=== PATIENT | male | born 2000 | race Hispanic/Latino ===

== ENCOUNTER → 2023-12-07 | Emergency (ER) | payer OTHER ==
[~2023-12-07] MED LIST: NICOTINE 21 MG/PAT TD ONE; hydrOXYzine HCL 25 MG TAB ONE
--- OUTSIDE RECORDS SUMMARY | 2023-12-07 19:33 | XMS REPORT | Continuity of Care Document ---
Author Name Unknown Address [address] [facility] [address] [place], [place] [id number] [place] [address] [facility] Address [address] [address] [address] [place] [address] Care Team Providers Care Line Installer Name Role Phone Nataliya Shu Attending Clinician Unavailable Treva Craig Attending Clinician Unavailable Raju_Leroy Attending Clinician Unavailable KNOW, DOES_NOT Admitting Clinician Unavailable Raju_P Admitting Clinician Unavailable Payers Payer Name Policy Type Policy Number Effective Date Expirati on Date Source Problems Condition Name Condition Details Condition Category Status Onset Date Resolution Date Last Treatment Date Treating Clinician Comments Source [id number] Bipolar affective disorder, current episode depressed, current episode severity unspecifie d Problem Common [facility] Allergies, Adverse Reactions, Alerts Allergy Name Allergy Type Status Severity Reaction(s) Onset Date Inactive Date Treating Clinician Comments Source pollen extracts DA Active [facility] 05-21 00:00: 00 [facility] cat dander DA Active [place] [facility] 05-21 00:00: 00 [facility] No Known Allergie s DA Active U 12-18 00:00: 00 [facility] Social History Social Habit Start Date Stop Date Quantity Comments Source History of Tobacco Use [facility] Sex Assigned At [facility] Smoking Status Start Date Stop Date Source Former Smoker 2023-03-26 00:00:00 2023-03-26 00:00:00 [facility] Medications Ordered Medication Name Filled Medication Name Start Date Stop Date Current Medication? Ordering Clinician Indication Dosage Frequency Signature (SIG) Comments Components Source Paliperidon e ER 6 MG Paliperidon e ER 6 MG No 1{table t_in_th e_morni ng} BID Paliperido ne ER 6 MG Divalproex Sodium 500 MG Divalproex Sodium 500 MG No 1{table t} BID Divalproex Sodium 500 MG Paliperidon e ER 6 MG Paliperidon e ER 6 MG No 1{table t_in_th e_morni ng} BID Paliperido ne ER 6 MG Divalproex Sodium 500 MG Divalproex Sodium 500 MG No 1{table t} BID Divalproex Sodium 500 MG Paliperidon e ER 6 MG Paliperidon e ER 6 MG No 1{table t_in_th e_morni ng} BID Paliperido ne ER 6 MG Divalproex Sodium 500 MG Divalproex Sodium 500 MG No 1{table t} BID Divalproex Sodium 500 MG Vital Signs Vital Name Observation Time Observation Value Comments S triciace height 2023-04-03 13:20:00 69 [in_i] [facility] weight 2023-04-03 13:20:00 250 [lb_av] [facility] bmi 2023-04-03 13:20:00 36.91 kg/m2 [facility] height 2023-02-18 09:00:00 69 [in_i] [facility] n [facility] weight 2023-02-18 09:00:00 252 [lb_av] [facility] temperature 2023-02-18 09:00:00 98.7 [degF] Com mon [facility] bmi 2023-02-18 09:00:00 37.21 kg/m2 [facility] oximetry 2023-02-18 09:00:00 97 % [facility] respiratory rate 2023-02-18 09:00:00 17 /min [facility] blood pressure systolic 2023-02-18 09:00:00 132 mm[Hg] [facility] blood pressure diastolic 2023-02-18 09:00:00 76 mm[Hg] [facility] Encounters Start Date/Time End Date/Time Encounter Type Admission Type Attending Clinicians Care Facility Care Department Encounter ID Source 2023-04-03 12:09:02 Outpatient Shu An STYADIRALC STLMLC [id number] [facility] 2023-03-31 13:40:01 Outpatient Rocky Ani STLMLC ST[facility] [id number] [facility] 2023-02-18 08:40:04 Outpatient Shu An STLMLC STL[facility]C [id number] [facility] 2023-05-27 08:57:00 2023-05-27 08:57:00 Outpatient MINNIE Craig Treva HCAPM ALVARADO [id number] 23 [facility] 2023-04-08 00:00:00 2023-04-08 00:00:00 (TEL) STLMLC STLMLC [id number] [facility] 2023-04-03 00:00:00 2023-04-03 00:00:00 OFFICE VISIT ESTAB PT LEVEL 3 [facility] STL[facility]C [id number] [facility] 2023-02-18 00:00:00 2023-02-18 00:00:00 OFFICE VISIT NEW PT LEVEL 3 [facility] STL[facility]C [id number] [facility] 2020-01-26 11:53:00 2020-01-26 11:53:00 Outpatient Raju_P MMG MMG [id number] [facility] Results Test Description Test Time Test Comments Results Result Co mments Source PROTHROMBIN [id number] 16:30:00* Test Item Value Reference Range Interpretation Comme nts PT PATIENT (test code = PTP) 11.5 SECONDS 9.3-12.9 N INTERNATIONAL NORMAL RATIO (test code = INR) 1.04 INR Unit 0.8-1.2 N TARGET INR BY INDICATION Indication INR1. Prophylaxis of venous thrombosis 2.0 - 3.0 (orthopedic surgery), Prophylaxis of venous thrombosis (other than high-risk surgery), Treatment of Deep Vein Thrombosis/Pulmonary Embolism, Prevention of systemic embolism - Tissue heart valves, Acute Myocardial Infarction (to prevent systemic embolism), Valvular heart disease, Acute Myocardial Infarction (to prevent systemic embolism), Valvular heart disease, Atrial Fibrillation, Bileaflet mechanical valve in aortic position.2. Mechanical prosthetic valves (high risk), 2.5 - 3.5 Presence of Lupus Anticoagulant or Antiphospholipid Antibodies, Prevention of systemic embolism - Acute Myocardial Infarction (to prevent recurrent infarct). THROMBOPLASTIN TIME [id number] 16:30:00* Test Item Value Reference Range Interpretation Comme nts THROMBOPLASTIN TIME PARTIAL (test code = PTT) 35.1 SECONDS 26-35 H CBC W/AUTO [id number] 12:32:00* Test Item Value Reference Range Interpretation Comme nts WHITE BLOOD CELL (test code = WBC) 6.1 K/mm3 3.5-11.0 N RED BLOOD CELL (test code = RBC) 5.34 M/mm3 4.70-6.10 N HEMOGLOBIN (test code = HGB) 14.3 G/DL 12.3-15.9 N HEMATOCRIT (test code = HCT) 44.1 % 35.8-46.7 N MEAN CELL VOLUME (test code = MCV) 82.6 Fl 86.3-98.9 L MEAN CELL HGB (test code = MCH) 26.8 pg 28.9-34.4 L MEAN CELL HGB CONCETRATION (test code = MCHC) 32.4 G/DL 32.1-34.5 N RED CELL DISTRIBUTION WIDTH (test code = RDW) 12.2 SD 11.5-14.5 N PLATELET COUNT (test code = PLT) 281 K/mm3 150-450 N MEAN PLATELET VOLUME (test c ode = MPV) 10.30 fL 7.0-9.6 H NEUTROPHIL % (test code = NT%) 56.8 % 40-76 N IMMATURE GRANULOCYTE % (test code = IG%) 0.7 % 0.0-5.0 N LYMPHOCYTE % (test code = LY%) 28.5 % 20.5-51.1 N MONOCYTE % (test code = MO%) 10.7 % 1.7-9.3 H EOSINOPHIL % (test code = EO%) 2.6 % 0.0-6.0 N BASOPHIL % (test code = BA%) 0.7 % 0.0-2.0 N NUCLEATED RBC % (test code = NRBC%) 0.0 /100WBC% 0.0-1.0 N NEUTROPHIL # (test code = NT#) 3.5 K/mm3 1.8-7.6 N IMMATURE GRANULOCYTE # (test code = IG#) 0.04 x10 3/uL 0.00-0.03 H LYMPHOCYTE # (test code = LY#) 1.7 K/mm3 0.6-3.0 N MONOCYTE # (test code = MO#) 0.7 K/mm3 0.2-1.5 N EOSINOPHIL # (test code = EO#) 0.2 K/mm3 0.0-0.4 N BASOPHIL # (test code = BA#) 0.0 K/mm3 0.0-0.2 N NUCLEATED RBC # (test code = NRBC#) 0.0 K/mm3 0.00-0.01 N MANUAL DIFF REQUIRED (test c ode = MDIFF) NO DIFF/SCN CRITERIA BASIC METABOLIC [id number] 12:08:00* Test Item Value Reference Range Interpretation Comme nts SODIUM (test code = NA) 142 mmol/L 134-147 N POTASSIUM (test code = K) 4.0 mmol/L 3.4-5.0 N CHLORIDE (test code = CL) 110 mmol/L 100-108 H CARBON DIOXIDE (test code = CO2) 29 mmol/L 21-32 N ANION GAP (test code = GAP) 3.0 GAP calc 4.0-15.0 L GLUCOSE (test code = GLU) 119 MG/DL 70-110 H BLOOD UREA NITROGEN (test code = BUN) 12 MG/DL 7-18 N GLOMERULAR FILTRATION RATE (test code = GFR) >=60 max estimate estGFR >60 The Glomerular Filtration Rate is a calculated parameterbased on serum Creatinine, patient age and sex. GFR valuesless than 60 mL/min/1.73 square meters are indicative ofChronic Kidney Disease. Values less than 15 mL/min/1.73square meters indicate Kidney failure. The calculation forGFR is based on the CKD-EPI (2020) calculation. This formulais race indifferent and is the recommended formula for GFRby the National Kidney Foundation for Adults.The GFR will not calculate if the sex is unknown or if thepatient's age is <18 years. CREATININE (test code = CREAT) 0.8 MG/DL 0.8-1.3 N CALCIUM (test code = CA) 9.0 MG/DL 8.5-10.1 N COMPREHENSIVE METABOLIC PANEL(CMP)2023-03-29 00:00:00* Test Item Value Reference Range Interpretation Comme nts ALBUMIN (test code = 1751-7) 4.6 g/dL See_Comment N [Automated message] The system which generated this result transmitted reference range: 3.6-5.1 g/dL. The reference range was not used to interpret this result as normal/abnormal. ALBUMIN/GLOBULIN RATIO (test code = 1759-0) 1.5 (calc) See_Comment N [Automated message] The system which generated this result transmitted reference range: 1.0-2.5 (calc). The reference range was not used to interpret this result as normal/abnormal. ALKALINE PHOSPHATASE (test code = 6768-6) 75 U/L See_Comment N [Automated message] The system which generated this result transmitted reference range: 36-130 U/L. The reference range was not used to interpret this result as normal/abnormal. ALT (test code = 1742-6) 15 U/L See_Comment N [Automated message] The system which generated this result transmitted reference range: 9-46 U/L. The reference range was not used to interpret this result as normal/abnormal. AST (test code = 1920-8) 12 U/L See_Comment N [Automated message] The system which generated this result transmitted reference range: 10-40 U/L. The reference range was not used to interpret this result as normal/abnormal. BILIRUBIN, TOTAL (test code = 1975-2) 0.4 mg/dL See_Comment N [Automated message] The system which generated this result transmitted reference range: 0.2-1.2 mg/dL. The reference range was not used to interpret this result as normal/abnormal. BUN/CREATININE RATIO (test code = 3097-3) NOT APPLICABLE (calc) See_Comment [Automated message] The system which generated this result transmitted reference range: 6-22 (calc). The reference range was not used to interpret this result as normal/abnormal. CALCIUM (test code = 35633-7) 9.4 mg/dL See_Comment N [Automated message] The system which generated this result transmitted reference range: 8.6-10.3 mg/dL. The reference range was not used to interpret this result as normal/abnormal. CARBON DIOXIDE (test code = 2028-9) 26 mmol/L See_Comment N [Automated message] The system which generated this result transmitted reference range: 20-32 mmol/L. The reference range was not used to interpret this result as normal/abnormal. CHLORIDE (test code = 2075-0) 103 mmol/L See_Comment N [Automated message] The system which generated this result transmitted reference range: 98-110 mmol/L. The reference range was not used to interpret this result as normal/abnormal. CREATININE (test code = 2160-0) 0.87 mg/dL See_Comment N [Automated message] The system which generated this result transmitted reference range: 0.60-1.24 mg/dL. The reference range was not used to interpret this result as normal/abnormal. GLOBULIN (test code = 50367-0) 3.0 g/dL (calc) See_Comment N [Automated message] The system which generated this result transmitted reference range: 1.9-3.7 g/dL (calc). The reference range was not used to interpret this result as normal/abnormal. GLUCOSE (test code = 2345-7) 94 mg/dL See_Comment N [Automated message] The system which generated this result transmitted reference range: 65-139 mg/dL. The reference range was not used to interpret this result as normal/abnormal. POTASSIUM (test code = 2823-3) 4.5 mmol/L See_Comment N [Automated message] The system which generated this result transmitted reference range: 3.5-5.3 mmol/L. The reference range was not used to interpret this result as normal/abnormal. PROTEIN, TOTAL (test code = 2885-2) 7.6 g/dL See_Comment N [Automated message] The system which generated this result transmitted reference range: 6.1-8.1 g/dL. The reference range was not used to interpret this result as normal/abnormal. SODIUM (test code = 2951-2) 143 mmol/L See_Comment N [Automated message] The system which generated this result transmitted reference range: 135-146 mmol/L. The reference range was not used to interpret this result as normal/abnormal. UREA NITROGEN (BUN) (test code = 3094-0) 17 mg/dL See_Comment N [Automated message] The system which generated this result transmitted reference range: 7-25 mg/dL. The reference range was not used to interpret this result as normal/abnormal. CBC (INCLUDES DIFF/PLT)2023-03-29 00:00:00* Test Item Value Reference Range Interpretation Comme nts ABSOLUTE BASOPHILS (test code = 704-7) 53 cells/uL See_Comment N [Automated m essage] The system which generated this result transmitted reference range: 0-200 cells/uL. The reference range was not used to interpret this result as normal/abnormal. ABSOLUTE EOSINOPHILS (test code = 711-2) 190 cells/uL See_Comment N [Automated m essage] The system which generated this result transmitted reference range: 15-500 cells/uL. The reference range was not used to interpret this result as normal/abnormal. ABSOLUTE LYMPHOCYTES (test code = 731-0) 2546 cells/uL See_Comment N [Automated m essage] The system which generated this result transmitted reference range: 850-3900 cells/uL. The reference range was not used to interpret this result as normal/abnormal. ABSOLUTE MONOCYTES (test code = 742-7) 600 cells/uL See_Comment N [Automated m essage] The system which generated this result transmitted reference range: 200-950 cells/uL. The reference range was not used to interpret this result as normal/abnormal. ABSOLUTE NEUTROPHILS (test code = 751-8) 4210 cells/uL See_Comment N [Automated m essage] The system which generated this result transmitted reference range: 1396-0128 cells/uL. The reference range was not used to interpret this result as normal/abnormal. BASOPHILS (test code = 706-2) 0.7 % N EOSINOPHILS (test code = 713-8) 2.5 % N HEMATOCRIT (test code = 4544-3) 46.4 % See_Comment N [Automated messa ge] The system which generated this result transmitted reference range: 38.5-50.0 %. The reference range was not used to interpret this result as normal/abnormal. HEMOGLOBIN (test code = 718-7) 15.6 g/dL See_Comment N [Automated messa ge] The system which generated this result transmitted reference range: 13.2-17.1 g/dL. The reference range was not used to interpret this result as normal/abnormal. LYMPHOCYTES (test code = 736-9) 33.5 % N MCH (test code = 785-6) 27.8 pg See_Comment N [Automated messa ge] The system which generated this result transmitted reference range: 27.0-33.0 pg. The reference range was not used to interpret this result as normal/abnormal. MCHC (test code = 786-4) 33.6 g/dL See_Comment N [Automated messa ge] The system which generated this result transmitted reference range: 32.0-36.0 g/dL. The reference range was not used to interpret this result as normal/abnormal. MCV (test code = 787-2) 82.7 fL See_Comment N [Automated messa ge] The system which generated this result transmitted reference range: 80.0-100.0 fL. The reference range was not used to interpret this result as normal/abnormal. MONOCYTES (test code = 5905-5) 7.9 % N MPV (test code = 776-5) 9.9 fL See_Comment N [Automated messa ge] The system which generated this result transmitted reference range: 7.5-12.5 fL. The reference range was not used to interpret this result as normal/abnormal. NEUTROPHILS (test code = 770-8) 55.4 % N PLATELET COUNT (test code = 777-3) 310 Thousand/uL See_Comment N [Automated message] The system which generated this result transmitted reference range: 140-400 Thousand/uL. The reference range was not used to interpret this result as normal/abnormal. RDW (test code = 788-0) 13.5 % See_Comment N [Automated messa ge] The system which generated this result transmitted reference range: 11.0-15.0 %. The reference range was not used to interpret this result as normal/abnormal. RED BLOOD CELL COUNT (test code = 789-8) 5.61 Million/uL See_Comment N [Automated message] The system which generated this result transmitted reference range: 4.20-5.80 Million/uL. The reference range was not used to interpret this result as normal/abnormal. WHITE BLOOD CELL COUNT (test code = 6690-2) 7.6 Thousand/uL See_Comment N [Automated message] The system which generated this result transmitted reference range: 3.8-10.8 Thousand/uL. The reference range was not used to interpret this result as normal/abnormal. Notes Date/Time Note Provider Source 2023-06-09 14:51:00 [id number] 1[address] [place] [address] PATIENT NAME: ANILA DENNEY ADMIT DATE: 05/27/23ACCOUNT NO: [id number] ROOM NO: AGE: 22 REPORT TYPE: OPERATIVE REPORT SEX: M ADMITTING PHYSICIAN: ATTENDING PHYSICIAN: Treva Craig MD OPERATION DATE: 05/27/2023 PREOPERATIVE DIAGNOSIS: Pilonidal cyst. POSTOPERATIVE DIAGNOSIS: Pilonidal cyst. PROCEDURE: Excision of pilonidal cyst. SURGEON: Treva Craig MD ACTIMIZE ARCHITECT:Ivania Ortiz ANESTHESIA: GETA PROCEDURE IN DETAIL: The patient was taken back to the operating room andplaced supine on the operating table and general anesthesia was established, thepatient was positioned in prone position and the lower back and bilateralbuttocks were prepped and draped in standard sterile fashion. An ellipticalincision was made overlying the area of the cyst and extended through skin andsubcutaneous tissue. Irrigation was performed. Hemostasis was achieved. Thewound was then closed with interrupted nylon sutures. The patient tolerated theprocedure well and was taken to recovery area in stable condition. ESTIMATED BLOOD LOSS: Less than 10 mL. COMPLICATIONS: None. Dictated By: Treva Craig MD Date Dictated: 06/09/2023 14:51:42Date Transcribed: 06/09/2023 20:17:26GIULIA/Roopa #: [id number] ID: [id number] and Edited by Treva Craig MD On 06/23/23 7:19:31 AM at 0720 PATIENT NAME: ANILA DENNEY [id number].[id number] lable for patient [id number]:[id number] HCAPM
[2023-12-07 20:43] LABS: Absolute Lymphocytes (CBC) 1.8 K/uL (0.7-4.9); Hematocrit 43.9 % (39.6-49.0); Lymphocytes % 22.9 % (15.3-44.8); MCV 81.6 fL (80-100); MPV 8.3 fL (7.6-11.3); Platelets 281 thou/uL (152-406); RBC Red Blood Cell Count 5.38 M/uL (4.33-5.43)
[2023-12-07 20:50] LABS: Protime INR 1.12
[2023-12-07 21:04] LABS: ALT/SGPT 24 U/L (16-61); AST/SGOT 9 U/L (15-37); Albumin 3.5 g/dL (3.4-5.0); Alkaline Phosphatase 68 U/L (45-117); BUN Blood Urea Nitrogen 14 mg/dL (7-18); Bicarbonate 26 mEq/L (21-32); Bilirubin Direct 0.1 mg/dL (0-0.2); Bilirubin Indirect, Calculated 0.3 mg/dL (0.2-0.8); Bilirubin Total 0.4 mg/dL (0.2-1.0); Glomerular Filtration Rate 59 ml/min (=/>90); Glucose Level 91 mg/dL (74-106); Protein, Total 7.5 g/dL (6.4-8.2); Sodium Level 138 mEq/L (136-145)
[2023-12-07 21:50] LABS: Specific Gravity 1.028 (1.005-1.030); Urine Bacteria None Seen /HPF (<20); Urine Bilirubin NEGATIVE (Negative); Urine Blood Negative (Negative); Urine Clarity Clear (Clear); Urine Color Light-Yellow (Yellow); Urine Glucose NEGATIVE (Negative); Urine Mucus Slight /HPF (None Seen); Urine Protein TRACE (Negative); Urine RBC <5 /HPF (None Seen); Urine Urobilinogen Normal (Normal); Urine pH 6.5 (5.0-7.0)
[2023-12-07 21:55] LABS: Barbiturates NEGATIVE (NEGATIVE); Benzodiazepines NEGATIVE (NEGATIVE); Cocaine NEGATIVE (NEGATIVE); METHAMPHETAM NEGATIVE (NEGATIVE); Methadone NEGATIVE (NEGATIVE); Opiates NEGATIVE (NEGATIVE); Phencyclidine NEGATIVE (NEGATIVE); THC Cannibis NEGATIVE (NEGATIVE)
[2023-12-07 23:13] LABS: Valproic Acid (Depakene) Level 62.1 mcg/mL (50.0-100.0)
--- NOTE | 2023-12-07 23:23 | ER ---
Nurse's Notes [facility] Name: Tess Denney Age: 23 yrs Sex: Male : 2000 Arrival Date: 12/07/2023 Time: 19:30 Bed 19 Private MD: Diagnosis: Suicidal ideations;Exacerbation of chronic depression. Acute on chronic depression, suicidal ideation with plan Presentation: 12/07 19:55 Chief complaint: Patient states: Pt states he is having suicidal ideation since making tl4 an attempt by cutting his left wrist approx 1 month ago. Pt denies any attempt at self harm today. Pt states he had a relationship end and has been struggling to deal with it. Pt denies having a plan. Pt has history of inpatient psych treatment x 5. Pt denies HI. Coronavirus screen: At this time, the client does not indicate any symptoms associated with coronavirus-19. Ebola Screen: No symptoms or risks identified at this time. Initial Sepsis Screen: Does the patient meet any 2 criteria? No. Patient's initial sepsis screen is negative. Does the patient have a suspected source of infection? No. Patient's initial sepsis screen is negative. Risk Assessment: Do you want to hurt yourself or someone else? Patient reports no desire to harm self or others. Onset of symptoms was November 08, 2023. 19:55 Method Of Arrival: Ambulatory tl4 19:55 Acuity: RUIZ 2 tl4 Triage Assessment: 20:02 General: Appears in no apparent distress. uncomfortable, obese, Behavior is vc1 cooperative, anxious. 20:02 Pain: Denies pain. EENT: No deficits noted. No signs and/or symptoms were reported vc1 regarding the EENT system. Neuro: Level of Consciousness is awake, alert, obeys commands, Oriented to person, place, time, situation, Appropriate for age. Cardiovascular: Reports None Heart tones S1 S2. Respiratory: Airway is patent Respiratory effort is even, unlabored, Respiratory pattern is regular, symmetrical, Breath sounds are clear bilaterally. GI: No deficits noted. No signs and/or symptoms were reported involving the gastrointestinal system. Abdomen is round non-distended, Bowel sounds present X 4 quads. : No deficits noted. No signs and/or symptoms were reported regarding the genitourinary system. Derm: No deficits noted. No signs and/or symptoms reported regarding the dermatologic system. Musculoskeletal: No deficits noted. No signs and/or symptoms reported regarding the musculoskeletal system. Historical: - Allergies: 20:00 No Known Allergies; tl4 - Home Meds: 20:00 paliperidone 6 mg oral Tablet, Extended Release 24 hr 2 tabs daily [Active]; divalproex tl4 500 mg oral tablet, delayed release (enteric coated) 2 tabs daily [Active]; hydroxyzine HCl 25 mg Oral tablet 1 tab [Active]; - PMHx: 20:00 Bipolar disorder; tl4 - PSHx: 20:00 wisdom teeth extraction; pilondial cyst removal; tl4 - Immunization history:: Adult Immunizations unknown. - Social history:: Smoking status: Reported history of juuling and/or vaping. - Family history:: not pertinent. Screenin:02 [facility] ED Fall Risk Assessment (Adult) History of falling in the last 3 months, vc1 including since admission No falls in past 3 months (0 pts) Confusion or Disorientation No (0 pts) Intoxicated or Sedated No (0 pts) Impaired Gait No (0 pts) Mobility Assist Device Used No (0 pt) Altered Elimination No (0 pt) Score/Fall Risk Level 0 - 2 = Low Risk Oriented to surroundings, Maintained a safe environment, Educated pt \\T\\ family on fall prevention, incl call for assistance when getting out of bed. Abuse screen: Denies threats or abuse. 20:02 Nutritional screening: No deficits noted. Tuberculosis screening: No symptoms or risk vc1 factors identified. Assessment: 21:42 Reassessment: No changes from previously documented assessment. Patient and/or family vc1 updated on plan of care and expected duration. Pain level reassessed. Patient is alert, oriented x 3, equal unlabored respirations, skin warm/dry/pink. 23:23 Reassessment: No changes from previously documented assessment. Patient and/or family vc1 updated on plan of care and expected duration. Pain level reassessed. Patient is alert, oriented x 3, equal unlabored respirations, skin warm/dry/pink. Pt resting comfortably. General: Behavior is calm, cooperative, appropriate for age. 12/08 01:18 Reassessment: Teresa Paniagua behavioral nurse to nurse. vc1 02:16 Reassessment: Patient and/or family updated on plan of care and expected duration. Pain vc1 level reassessed. Patient is alert, oriented x 3, equal unlabored respirations, skin warm/dry/pink. General: Appears in no apparent distress. comfortable, Behavior is calm, cooperative, appropriate for age. 03:36 Reassessment: Discharged from observation. EMS at bedside. vc1 Psych: 12/07 20:02 [place] Suicide Severity Screening: In the past month, have you wished you were vc1 or wished you could go to sleep and not wake up? Patient responds "yes." Based off the client's responses additional C-SSRS screening is required. "In the past month, have you actually had any thoughts of killing yourself?" Patient responds "yes." Based off the client's response additional [place] suicide severity screening questions to be further documented on paper forms. "In your lifetime, have you ever done anything, started to do anything, or prepared to do anything to end your life?" Patient responds "yes." Patient reports suicidal intent within 3 past months. 20:02 [place] Suicide Severity Screening: On November 08 Pt attempted to cut his wrist vc1 after relationship with significant other ended. Pt interrupted self due to the pain. Pt stated he is not afraid of dying but doesn't want it to be painful. Subjective: Patient's mood is sad, Delusions are denied, Hallucinations are denied Having thoughts of suicide. Denies suicidal plan. Objective: Patient is cooperative, Speech is normal, Affect is appropriate. Interventions: Removed personal items and placed in bag. Patient placed in hospital gown. Searched person for dangerous items. Urine collected and sent for urine drug test. Belonging list filled out. Safety Checks: Personal items have been removed. Door is open. No visitors are present at this time. Patient uses tobacco Frequency Pt vapes. Commitment: Patient will be an involuntary commitment. Vital Signs: 19:55 BP 133 / 80; Pulse 109; Resp 18; Temp 97.8(TE); Pulse Ox 96% on R/A; Weight 120.2 kg; tl4 Height 5 ft. 10 in. ; Pain 0/10; 12/08 01:16 Height 5 ft. 10 in. ; vc1 02:12 BP 143 / 66; Pulse 88; Resp 18; Pulse Ox 100% ; vc1 02:14 Temp 98; vc1 12/07 19:55 Body Mass Index 38.02 (120.20 kg, 177.8 cm) tl4 12/07 19:55 Pain Scale: Adult tl4 ED Course: 12/07 19:35 Patient arrived in ED. gm2 19:39 Melvin Abreu MD is Attending Physician. sp4 20:00 Triage completed. tl4 20:02 Patient has correct armband on for positive identification. Bed in low position. Lights vc1 dimmed. Warm blanket given. Patient is placed in psych hold. 20:05 Arm band placed on left wrist. tl4 20:28 Inserted saline lock: 20 gauge in right antecubital area, using aseptic technique. nj1 Blood collected. 21:29 Kaylynn Stout RN is Primary Nurse. vc1 12/08 00:30 Faxed current chart to all Psych Facilities. wm 01:12 [facility] called to do Nurse to Nurse. wm 01:18 Pt accepted for transfer to [facility] by Delfino Alva per Arcelia Bowens RN., Admin approval by Treva Estes. 01:43 EMS will transport with an ETA \\T\\ 0230. wm 02:51 Called EMS to get updated ETA, she "fell back asleep" new ETA is 0315. wm 03:26 EMS has now arrived 1hr past original ETA of 0230. 03:36 No provider procedures requiring assistance completed. IV discontinued, intact, vc1 bleeding controlled, No redness/swelling at site. Pressure dressing applied. 03:38 Provided Education on: Transfer process. vc1 Administered Medications: 12/07 20:41 Drug: hydrOXYzine PO 50 mg PO once Route: PO; nj1 12/08 02:16 Follow up: Response: No adverse reaction; Marked relief of symptoms vc1 03:18 Drug: Nicoderm CQ Transdermal Patch 21 mg/24 hr 1 patches Transdermal once {Note: right vc1 upper arm.} Route: Transdermal; Site: affected area; Medication: 12/07 21:36 VIS not applicable for this client. vc1 Outcome: 23:23 ER care complete, transfer ordered by . sp4 12/08 03:36 Transferred by ground EMS to other acute care facility: [facility]. Transfer vc1 form completed. Condition: good Instructed on the need for transfer, 03:39 Patient left the ED. vc1 Signatures: Carina Escudero Kaylynn Stout RN RN vc1 Melvin Abreu MD MD sp4 Latonia Vinson RN RN nj1 Starla Terrazas 2 Hema Salmeron RN RN tl4 Corrections: (The following items were deleted from the chart) 01:37 01:12 [facility] called to do Nurse to Nurse [facility] :16 02:13 General: Appears in no apparent distress. uncomfortable, obese, Behavior is vc1 cooperative, anxious, vc1 02:13 Pain: Denies pain. vc1 vc1 : 02:13 EENT: No deficits noted. No signs and/or symptoms were reported regarding the vc1 EENT system. vc1 02:13 Neuro: Level of Consciousness is awake, alert, obeys commands, Oriented to vc1 person, place, time, situation, Appropriate for age vc1 : 02:13 Cardiovascular: Reports None Heart tones S1 S2 vc1 vc1 02:13 Respiratory: Airway is patent Respiratory effort is even, unlabored, Respiratory vc1 pattern is regular, symmetrical, Breath sounds are clear bilaterally. vc1 : 02:13 GI: No deficits noted. No signs and/or symptoms were reported involving the vc1 gastrointestinal system. Abdomen is round non-distended, Bowel sounds present X 4 quads. vc1 : 02:13 : No deficits noted. No signs and/or symptoms were reported regarding the vc1 genitourinary system. vc1 02:13 Derm: No deficits noted. No signs and/or symptoms reported regarding the vc1 dermatologic system. vc1 02:13 Musculoskeletal: No deficits noted. No signs and/or symptoms reported regarding vc1 the musculoskeletal system. vc1
--- NOTE | 2023-12-07 23:23 | EDPHYS ---
Physician Documentation [facility] Name: Tess Denney Age: 23 yrs Sex: Male : 2000 Arrival Date: 12/07/2023 Time: 19:30 Bed 19 Private MD: ED Physician Melvin Abreu HPI: 12/07 19:39 This 23 yrs old Other Male presents to ER via Unassigned with complaints of Suicidal sp4 Ideation. 22:11 23-year-old male with history of bipolar disorder on Invega 12 mg daily, Depakote 1000 sp4 mg daily, Vistaril 50 mg daily, presents with complaint of worsening depression and suicidal ideation starting 11/08/2023. Patient reports he had broken up with a female and is now experiencing stress also depression causing him to think about cutting his wrist with a razor. Patient states his last hospitalization for psychiatric purpose was in February 2022 in [place]. Patient is now residing in [facility].. 22:14 Patient states he is compliant with his medications but has requested Vistaril PO for sp4 anxiety. . Historical: - Allergies: 20:00 No Known Allergies; tl4 - Home Meds: 20:00 paliperidone 6 mg oral Tablet, Extended Release 24 hr 2 tabs daily [Active]; divalproex tl4 500 mg oral tablet, delayed release (enteric coated) 2 tabs daily [Active]; hydroxyzine HCl 25 mg Oral tablet 1 tab [Active]; - PMHx: 20:00 Bipolar disorder; tl4 - PSHx: 20:00 wisdom teeth extraction; pilondial cyst removal; tl4 - Immunization history:: Adult Immunizations unknown. - Social history:: Smoking status: Reported history of juuling and/or vaping. - Family history:: not pertinent. ROS: 22:14 Constitutional: Negative for fever, chills, and weight loss, positive for depression sp4 and suicidal ideation with plan Eyes: Negative for injury, pain, redness, and discharge, Psych: Positive for depression with suicidal ideation and plan, positive for some anxiety 22:14 All other systems are negative, Exam: 22:14 Constitutional: This is a well developed, well nourished patient who is awake, alert, sp4 and in no acute distress. Head/Face: Normocephalic, atraumatic. Eyes: Pupils equal round and reactive to light, extra-ocular motions intact. Lids and lashes normal. Conjunctiva and sclera are not injected. Cornea within normal limits. Periorbital areas with no swelling, redness, or edema. ENT: Nares patent. No nasal discharge, no septal abnormalities noted. Tympanic membranes are normal and external auditory canals are clear. Oropharynx with no redness, swelling, or masses, exudates, or evidence of obstruction, uvula midline. Mucous membranes moist. Neck: Trachea midline, no thyromegaly or masses palpated, and no cervical lymphadenopathy. Supple, full range of motion without nuchal rigidity, or vertebral point tenderness. Chest/axilla: Normal chest wall appearance and motion. Nontender with no deformity. No lesions are appreciated. Cardiovascular: Regular rate and rhythm with a normal S1 and S2. No gallops, murmurs, or rubs. Normal PMI, no JVD. No pulse deficits. Respiratory: Lungs have equal breath sounds bilaterally, clear to auscultation and percussion. No rales, rhonchi or wheezes noted. No increased work of breathing, no retractions or nasal flaring. Abdomen/GI: Soft, with normal bowel sounds. No distension or tympany. No guarding or rebound. No evidence of tenderness throughout. Back: No spinal tenderness. No costovertebral tenderness. Skin: Warm, dry with normal turgor. Normal color with no rashes, no lesions, and no evidence of cellulitis. MS/ Extremity: Pulses equal, no cyanosis. Neurovascular intact. Full, normal range of motion. Neuro: Awake and alert, GCS 15, oriented to person, place, time, and situation. Cranial nerves II-XII grossly intact. Motor strength 5/5 in all extremities. Sensory grossly intact. Psych: Awake, alert, with orientation to person, place and time. Behavior is normal, appears mildly depressed. Positive for suicidal ideation 22:15 ECG was reviewed by the Attending Physician. EEG time 2142 - normal sinus rhythm sp4 normal EKG. Rate 83 beats per min Vital Signs: 19:55 BP 133 / 80; Pulse 109; Resp 18; Temp 97.8(TE); Pulse Ox 96% on R/A; Weight 120.2 kg; tl4 Height 5 ft. 10 in. ; Pain 0/10; 12/08 01:16 Height 5 ft. 10 in. ; vc1 02:12 BP 143 / 66; Pulse 88; Resp 18; Pulse Ox 100% ; vc1 02:14 Temp 98; vc1 12/07 19:55 Body Mass Index 38.02 (120.20 kg, 177.8 cm) tl4 12/07 19:55 Pain Scale: Adult tl4 MDM: 12/07 19:47 Patient medically screened. sp4 22:14 Differential diagnosis: drug withdrawal. acute psychotic break, depression, psychosis sp4 secondary to non-compliance. Data reviewed: vital signs, nurses notes, lab test result(s), EKG. 12/08 01:48 Consideration of Admission/Observation Escalation of care including sp4 admission/observation considered. Management of patient was discussed with the following: City Distribution Clerk: [facility] accepting psychiatrist. ED course: Patient was [facility] to [facility] . 12/07 19:58 Order name: Acetaminophen; Complete Time: 23:23 sp4 12/07 19:58 Order name: Basic Metabolic Panel; Complete Time: 23:23 4 12/07 19:58 Order name: CBC with Diff; Complete Time: 21:02 4 12/07 19:58 Order name: ETOH Level; Complete Time: 22:09 sp4 12/07 19:58 Order name: Hepatic Function; Complete Time: 23:23 sp4 12/07 19:58 Order name: PT-INR; Complete Time: 21:02 4 12/07 19:58 Order name: Ptt, Activated; Complete Time: 21:02 4 12/07 19:58 Order name: Salicylate; Complete Time: 22:09 4 12/07 19:58 Order name: Urinalysis w/ reflexes; Complete Time: 22:09 sp4 12/07 19:58 Order name: Urine Drug Screen; Complete Time: 22:09 sp4 12/07 22:53 Order name: Valproic Acid (Depakene) Level; Complete Time: 23:23 EDMS 12/07 22:53 Order name: Thyroid Stimulating Hormone; Complete Time: 23:23 EDMS 12/07 19:58 Order name: EKG; Complete Time: 19:58 sp4 12/07 19:58 Order name: EKG - Nurse/Tech; Complete Time: 21:41 sp4 12/07 19:58 Order name: IV Saline Lock; Complete Time: 20:37 sp4 12/07 19:58 Order name: Labs collected and sent; Complete Time: 20:37 sp4 12/07 19:58 Order name: Suicide Precautions; Complete Time: 21:36 sp4 12/07 19:58 Order name: Suicide Screening ([place]); Complete Time: 21:36 sp4 EC/18 22:15 Rate is 83 beats/min. Rhythm is regular, Normal Sinus Rhythm. QRS [place] is Normal. [place] sp4 interval is normal. QRS interval is normal. QT interval is normal. No Q waves. T waves are Normal. No ST changes noted. Clinical impression: Normal ECG. Interpreted by me. Reviewed by me. Administered Medications: 20:41 Drug: hydrOXYzine PO 50 mg PO once Route: PO; nj1 12/08 02:16 Follow up: Response: No adverse reaction; Marked relief of symptoms vc1 03:18 Drug: Nicoderm CQ Transdermal Patch 21 mg/24 hr 1 patches Transdermal once {Note: right vc1 upper arm.} Route: Transdermal; Site: affected area; Disposition Summary: 12/07/23 23:23 Transfer Ordered Notes: Transfer Location: Psych Facility sp4 Reason: Higher level of care sp4 Condition: Serious sp4 Problem: new sp4 Symptoms: have improved sp4 Accepting Physician: Accepting psychiatrist(12/08/23 03:39) vc1 Diagnosis - Suicidal ideations sp4 - Exacerbation of chronic depression. Acute on chronic depression, suicidal sp4 ideation with plan Forms: - Medication Reconciliation Form sp4 - SBAR form sp4 Signatures: Dispatcher [employer] EDMS Kaylynn Stout RN RN vc1 Melvin Abreu MD MD sp4 Latonia Vinson RN RN nj1 Hema Salmeron RN RN tl4 Corrections: (The following items were deleted from the chart) 12/07 22:52 22:13 VALPROIC ACID (DEPAKOTE)+C.LAB.BRZ ordered. EDMS EDMS 22:52 22:13 THYROID STIMULAT HORMONE+C.LAB.BRZ ordered. EDMS EDMS 12/08 03:39 12/07 23:23 Accepting psychiatrist sp4 vc1
[2023-12-08 03:47] VITALS: BP 143/66; TEMP 98; O2SAT 100
== END ==
LOC: ER 19:30
DX: R45.851 Suicidal ideations (principal); F32.A Depression, unspecified
CPT/HCPCS: 36415; 80048; 80076; 80143; 80164; 80179; 80307; 81001; 82077; 84443; 85025; 85610; 85730

== ENCOUNTER 2024-02-02 22:59 | Emergency (ER) | payer OTHER ==
--- OUTSIDE RECORDS SUMMARY | 2024-02-02 23:02 | XMS REPORT | Continuity of Care Document ---
Author Name Unknown Address [address] [facility] [address] [place], [place] [address] [place] [address] [facility] Address [address] [address] [address] [place] [address] Care Team Providers Care Health Information Managers Name Role Phone Nataliya Shu Attending Clinician Unavailable Treva Craig Attending Clinician Unavailable Raju_Leroy Attending Clinician Unavailable KNOW, DOES_NOT Admitting Clinician Unavailable Raju_P Admitting Clinician Unavailable Payers Payer Name Policy Type Policy Number Effective Date Expirati on Date Source Problems Condition Name Condition Details Condition Category Status Onset Date Resolution Date Last Treatment Date Treating Clinician Comments Source [id number] Bipolar affective disorder, current episode depressed, current episode severity unspecifie d Problem Common [facility] Allergies, Adverse Reactions, Alerts Allergy Name Allergy Type Status Severity Reaction(s) Onset Date Inactive Date Treating Clinician Comments Source pollen extracts DA Active [facility] 05-21 00:00: 00 [facility] cat dander DA Active [facility] 05-21 00:00: 00 [facility] No Known Allergie s DA Active U 12-18 00:00: 00 [facility] Social History Social Habit Start Date Stop Date Quantity Comments Source History of Tobacco Use [facility] Sex Assigned At [facility] Smoking Status Start Date Stop Date Source Former Smoker 2023-03-26 00:00:00 2023-03-26 00:00:00 [facility] Medications Ordered Medication Name Filled Medication Name [...] height 2023-04-03 13:20:00 69 [in_i] Commo n [facility] weight 2023-04-03 13:20:00 250 [lb_av] Comm on [facility] bmi 2023-04-03 13:20:00 36.91 kg/m2 Comm on [facility] height 2023-02-18 09:00:00 69 [in_i] Commo n [facility] weight 2023-02-18 09:00:00 252 [lb_av] Comm on [facility] temperature 2023-02-18 09:00:00 98.7 [degF] Com mon [facility] bmi 2023-02-18 09:00:00 37.21 kg/m2 Comm on [facility] oximetry 2023-02-18 09:00:00 97 % Commo n [facility] respiratory rate 2023-02-18 09:00:00 17 /min [facility] blood pressure systolic 2023-02-18 09:00:00 132 mm[Hg] [facility] blood pressure diastolic 2023-02-18 09:00:00 76 mm[Hg] [facility] Encounters Start Date/Time End Date/Time Encounter Type Admission Type Attending Clinicians Care Facility Care Department Encounter ID Source 2023-04-03 12:09:02 Outpatient Shu An STYADIRALC STLMLC [id number] [facility] 2023-03-31 13:40:01 Outpatient Rocky Ani STLMLC STLMLC [id number] [facility] 2023-02-18 08:40:04 Outpatient Shu An STLMLC STLMLC [id number] [facility] 2023-05-27 08:57:00 2023-05-27 08:57:00 Outpatient MINNIE Craig Treva HCAPM ALVARADO [id number] [facility] 2023-04-08 00:00:00 2023-04-08 00:00:00 (TEL) STLMLC STLMLC [id number] [facility] 2023-04-03 00:00:00 2023-04-03 00:00:00 OFFICE VISIT ESTAB PT LEVEL 3 STLMLC STLMLC [id number] [facility] 2023-02-18 00:00:00 2023-02-18 00:00:00 OFFICE VISIT NEW PT LEVEL 3 STLMLC STLMLC [id number] [facility] 2020-01-26 11:53:00 2020-01-26 11:53:00 Outpatient Raju_P MMG MMG [id number] [facility] Results Test Description Test Time Test Comments Results Result Co mments Source PROTHROMBIN [id number] 16:30:00* Test Item Value Reference Range Interpretation [...] Infarction (to prevent recurrent infarct). THROMBOPLASTIN TIME [id number] 16:30:00* Test Item Value Reference Range Interpretation Comme nts THROMBOPLASTIN TIME PARTIAL (test code = PTT) 35.1 SECONDS 26-35 H CBC W/AUTO [id number] 12:32:00* Test Item Value Reference Range Interpretation [...] = MDIFF) NO DIFF/SCN CRITERIA BASIC METABOLIC [id number] 12:08:00* Test Item Value Reference Range Interpretation [...] result as normal/abnormal. CALCIUM (test code = 58050-5) 9.4 mg/dL See_Comment N [Automated message] The [...] result as normal/abnormal. GLOBULIN (test code = 72148-4) 3.0 g/dL (calc) See_Comment N [Automated message] [...] which generated this result transmitted reference range: 8127-6865 cells/uL. The reference range was not used [...] Notes Date/Time Note Provider Source 2023-06-09 14:51:00 [id number] 1-0023 [place] [address] PATIENT NAME: ANILA DENNEY ADMIT DATE: 05/27/23ACCOUNT NO: [id number] ROOM NO: AGE: 22 REPORT TYPE: OPERATIVE REPORT SEX: M ADMITTING PHYSICIAN: ATTENDING PHYSICIAN: Treva Craig MD OPERATION DATE: 05/27/2023 PREOPERATIVE DIAGNOSIS: Pilonidal cyst. POSTOPERATIVE DIAGNOSIS: Pilonidal cyst. PROCEDURE: Excision of pilonidal cyst. SURGEON: Treva Craig MD VP DESIGN:Ivania Ortiz ANESTHESIA: GETA PROCEDURE IN DETAIL: The [...] Dictated: 06/09/2023 14:51:42Date Transcribed: 06/09/2023 20:17:26GIULIA/Roopa #: [id number] ID: [id number] and Edited by Treva Criag MD On 06/23/23 7:19:31 AM at 0720 PATIENT NAME: ANILA DENNEY [id number] lable for patient [id number]
--- NOTE | 2024-02-02 23:30 | EDPHYS ---
Physician Documentation [facility] Name: Tess Denney Age: 23 yrs Sex: Male : 2000 Arrival Date: 02/02/2024 Time: 22:59 Bed IW2 Private MD: ED Physician Melvin Abreu HPI: 02/01 23:15 This 23 yrs old Male presents to ER via Unassigned with complaints of spider sp4 bite on finger. 23:24 23-year-old male presents with left ring finger pain and swelling secondary to sp4 presumed spider bite. Patient states he thinks he was bitten by a spider in the left distal ring finger which is now red and painful. This happened a this morning. . Historical: - Allergies: 23:28 No Known Allergies; cm10 - PMHx: 23:28 Bipolar disorder; cm10 - PSHx: 23:28 pilondial cyst removal; [place] teeth extraction; cm10 - Immunization history:: Adult Immunizations up to date. - Infectious Disease History:: Denies. - Family history:: not pertinent. - Social history:: Smoking status: Patient denies any tobacco usage or history of. ROS: 23:24 Constitutional: Negative for fever, chills, and weight loss, positive for left ring sp4 finger pain redness swelling. 23:24 All other systems are negative, Exam: 23:24 Constitutional: This is a well developed, well nourished patient who is awake, alert, sp4 and in no acute distress. Head/Face: Normocephalic, atraumatic. Eyes: Pupils equal round and reactive to light, extra-ocular motions intact. Lids and lashes normal. Conjunctiva and sclera are not injected. Cornea within normal limits. Periorbital areas with no swelling, redness, or edema. ENT: Nares patent. No nasal discharge, no septal abnormalities noted. Tympanic membranes are normal and external auditory canals are clear. Oropharynx with no redness, swelling, or masses, exudates, or evidence of obstruction, uvula midline. Mucous membranes moist. Neck: Trachea midline, no thyromegaly or masses palpated, and no cervical lymphadenopathy. Supple, full range of motion without nuchal rigidity, or vertebral point tenderness. Chest/axilla: Normal chest wall appearance and motion. Nontender with no deformity. No lesions are appreciated. Cardiovascular: Regular rate and rhythm with a normal S1 and S2. No gallops, murmurs, or rubs. Normal PMI, no JVD. No pulse deficits. Respiratory: Lungs have equal breath sounds bilaterally, clear to auscultation and percussion. No rales, rhonchi or wheezes noted. No increased work of breathing, no retractions or nasal flaring. Abdomen/GI: Soft, with normal bowel sounds. No distension or tympany. No guarding or rebound. No evidence of tenderness throughout. Back: No spinal tenderness. No costovertebral tenderness. Skin: Warm, dry with normal turgor. Normal color with no rashes, no lesions, and no evidence of cellulitis. MS/ Extremity: Pulses equal, no cyanosis. Neurovascular intact. Full, normal range of motion. Positive the left ring finger pain swelling and redness. Neuro: Awake and alert, GCS 15, oriented to person, place, time, and situation. Cranial nerves II-XII grossly intact. Motor strength 5/5 in all extremities. Sensory grossly intact. Psych: Awake, alert, with orientation to person, place and time. Behavior, mood, and affect are within normal limits Vital Signs: 23:26 BP 119 / 78; Pulse 93; Resp 18; Temp 98.5; Pulse Ox 97% on R/A; Weight 99.79 kg; Height cm10 5 ft. 10 in. ; Pain 3/10; 23:26 Body Mass Index 31.57 (99.79 kg, 177.8 cm) cm10 23:26 Pain Scale: Adult cm10 [place] Coma Score: 23:24 Eye Response: spontaneous(4). Motor Response: obeys commands(6). Verbal Response: sp4 oriented(5). Total: 15. MDM: 23:24 Differential Diagnosis Cellulitis, infected insect bite, infected spider bite. Data sp4 reviewed: vital signs, nurses notes. ED course: Stable for discharge home with Bactrim and Keflex for 10 days. 23:29 Patient medically screened. sp4 Administered Medications: 23:40 Drug: Trimethoprim-Sulfamethoxazole PO (160 mg-800 mg (DS) 1 tablet PO once Route: PO; cm10 23:41 Follow up: Response: Medication administered at discharge. cm10 23:40 Drug: Cephalexin PO 500 mg PO once Route: PO; cm10 23:41 Follow up: Response: Medication administered at discharge. cm10 23:40 Drug: Ibuprofen PO 800 mg PO once Route: PO; cm10 23:41 Follow up: Response: Medication administered at discharge. cm10 23:40 Drug: Acetaminophen PO 1000 mg PO once Route: PO; cm10 23:40 Follow up: Response: Medication administered at discharge. cm10 Disposition Summary: 02/02/24 23:29 Discharge Ordered Notes: Location: Home sp4 Problem: new sp4 Symptoms: have improved sp4 Condition: Stable sp4 Diagnosis - Cellulitis of finger sp4 - Left ring finger cellulitis, infected puncture wound sp4 Followup: sp4 - With: Private Physician - When: 7 - 10 days - Reason: Recheck today's complaints Discharge Instructions: - Discharge Summary Sheet sp4 - Cellulitis, Adult, [id number] sp4 Forms: - Patient Portal Instructions sp4 Prescriptions: - Cephalexin 500 mg Oral Capsule - take 1 capsule ORAL route every 8 hours for 10 days; 30 capsule; Refills: 0, sp4 Product Selection Permitted - Bactrim DS 800-160 mg Oral Tablet - take 1 tablet ORAL route every 12 hours for 10 days; 20 tablet; Refills: 0, sp4 Product Selection Permitted Signatures: Melvin Abreu MD MD sp4 Ankita Morales RN RN cm10
--- NOTE | 2024-02-02 23:30 | ER ---
Nurse's Notes [facility] Name: Tess Denney Age: 23 yrs Sex: Male : 2000 Arrival Date: 02/02/2024 Time: 22:59 Bed IW2 Private MD: Diagnosis: Cellulitis of finger;Left ring finger cellulitis, infected puncture wound Presentation: 02/01 23:26 Chief complaint: Patient states: Spider bite to knuckle on left hand. Pt noted to have cm10 redness. Coronavirus screen: Client denies travel out of the [place] in the last 14 days. At this time, the client does not indicate any symptoms associated with coronavirus-19. Ebola Screen: Patient denies travel to an Ebola-affected area in the 21 days before illness onset. No symptoms or risks identified at this time. Initial Sepsis Screen: Does the patient meet any 2 criteria? HR > 90 bpm. Does the patient have a suspected source of infection? No. Patient's initial sepsis screen is negative. Risk Assessment: Do you want to hurt yourself or someone else? Patient reports no desire to harm self or others. Onset of symptoms was February 02, 2024. 23:26 Method Of Arrival: Ambulatory cm10 23:26 Acuity: RUIZ 4 cm10 Triage Assessment: 23:28 General: Appears in no apparent distress. comfortable, Behavior is calm, cooperative. cm10 Pain: Complains of pain in dorsal aspect of proximal phalanx of left ring finger and dorsum of left hand Pain currently is 3 out of 10 on a pain scale. Neuro: No deficits noted. Level of Consciousness is awake, alert, obeys commands, Oriented to person, place, time, situation. Respiratory: No deficits noted. Airway is patent Respiratory effort is even, unlabored, Respiratory pattern is regular, symmetrical. Derm: Redness noted to left hand. Musculoskeletal: No deficits noted. Range of motion: intact in all extremities. Historical: - Allergies: 23:28 No Known Allergies; cm10 - PMHx: 23:28 Bipolar disorder; cm10 - PSHx: 23:28 pilondial cyst removal; [place] teeth extraction; cm10 - Immunization history:: Adult Immunizations up to date. - Infectious Disease History:: Denies. - Family history:: not pertinent. - Social history:: Smoking status: Patient denies any tobacco usage or history of. Screenin:29 [facility] ED Fall Risk Assessment (Adult) History of falling in the last 3 months, cm10 including since admission No falls in past 3 months (0 pts) Confusion or Disorientation No (0 pts) Intoxicated or Sedated No (0 pts) Impaired Gait No (0 pts) Mobility Assist Device Used No (0 pt) Altered Elimination No (0 pt) Score/Fall Risk Level 0 - 2 = Low Risk Oriented to surroundings, Maintained a safe environment, Hourly rounding (assess needs \T\ fall precautionary measures) done. Abuse screen: Denies threats or abuse. Denies injuries from another. Nutritional screening: No deficits noted. Tuberculosis screening: No symptoms or risk factors identified. Vital Signs: 23:26 BP 119 / 78; Pulse 93; Resp 18; Temp 98.5; Pulse Ox 97% on R/A; Weight 99.79 kg; Height cm10 5 ft. 10 in. ; Pain 3/10; 23:26 Body Mass Index 31.57 (99.79 kg, 177.8 cm) cm10 23:26 Pain Scale: Adult cm10 [place] Coma Score: 23:24 Eye Response: spontaneous(4). Motor Response: obeys commands(6). Verbal Response: sp4 oriented(5). Total: 15. ED Course: 23:04 Patient arrived in ED. ra3 23:15 Melvin Abreu MD is Attending Physician. sp4 23:28 Triage completed. cm10 23:29 Arm band placed on Patient placed in an exam room. cm10 23:29 Patient has correct armband on for positive identification. Provided Education on: cm10 follow-up instructions. Cardiac monitoring not applicable on this patient. 23:30 No provider procedures requiring assistance completed. Patient did not have IV access cm10 during this emergency room visit. Administered Medications: 23:40 Drug: Trimethoprim-Sulfamethoxazole PO (160 mg-800 mg (DS) 1 tablet PO once Route: PO; cm10 23:41 Follow up: Response: Medication administered at discharge. cm10 23:40 Drug: Cephalexin PO 500 mg PO once Route: PO; cm10 23:41 Follow up: Response: Medication administered at discharge. cm10 23:40 Drug: Ibuprofen PO 800 mg PO once Route: PO; cm10 23:41 Follow up: Response: Medication administered at discharge. cm10 23:40 Drug: Acetaminophen PO 1000 mg PO once Route: PO; cm10 23:40 Follow up: Response: Medication administered at discharge. cm10 Medication: 23:29 VIS not applicable for this client. cm10 Outcome: 23:29 Discharge ordered by . golden 23:41 Discharged to home ambulatory, cm10 23:41 Condition: good 23:41 Discharge instructions given to patient, Instructed on discharge instructions, follow up and referral plans. medication usage, Demonstrated understanding of instructions, follow-up care, medications, Prescriptions given X 2, 23:41 Patient left the ED. cm10 Signatures: Melvin Abreu MD MD sp4 Ankita Mroales RN RN cm10 Kiya Monet 3
[2024-02-02] MEDS ORDERED: CEPHALEXIN 250 MG CAP ONE (23:36)
[2024-02-02] MEDS ORDERED: ACETAMINOPHEN 500 MG TAB ONE (23:36)
[2024-02-02] MEDS ORDERED: SMZ./TMP. 800/160 MG TABLET ONE (23:36)
[2024-02-02] MEDS ORDERED: IBUPROFEN 400 MG TAB ONE (23:37)
[2024-02-03 07:11] VITALS: BP 119/78; TEMP 98.5; O2SAT 97
== END 2024-02-02 23:41 | disposition home or self-care (01) ==
LOC: ER 22:59
DX: L03.012 Cellulitis of left finger (principal)
CPT/HCPCS: 99283

== ENCOUNTER 2025-06-02 05:17 | Emergency (ER) | payer OTHER ==
--- OUTSIDE RECORDS SUMMARY | 2025-06-02 05:20 | XMS REPORT | Continuity of Care Document ---
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 Name Role Phone PCP, PATIENT DOES NOT HAVE A Primary Care Physic ray Unavailable Shu An Attending Clinician Unavailable ALICIA CALL Attending Clinician Unavailab ALICIA Tolentino Attending Clinician Unavailab Treva Cooper Attending Clinician Unavailable Raju_Leroy Attending Clinician Unavailable KNOW, DOES_NOT Admitting Clinician Unavailable Raju_P Admitting Clinician Unavailable Payers Payer Name Policy Type Policy Number Effective Date Expirati on Date Source [employer] [id number] 00:00:00 Problems Condition Name Condition Details Condition Category Status Onset Date Resolution Date Last Treatment Date Treating Clinician Comments Source Foot pain, right Foot pain, right Disease Active 01-23 00:00: 00 [facility] [id number] Bipolar affective disorder, current episode depressed, current episode severity unspecifie d Problem [facility] Allergies, Adverse Reactions, Alerts Allergy Name Allergy Type Status Severity Reaction(s) Onset Date Inactive Date Treating Clinician Comments Source pollen extracts DA Active [facility] 05-21 00:00: 00 [facility] cat dander DA Active [facility] 05-21 00:00: 00 [facility] No Known Allergie s DA Active U 12-18 00:00: 00 [facility] NO KNOWN ALLERGIE S Drug Class Active [facility] Social History Social Habit Start Date Stop Date Quantity Comments Source Sexual orientation U [facility] History of Tobacco Use [facility] Alcoholic beverage intake 2025-05-30 00:00:00 2025-05-30 00:00:00 0 /d [facility] History of Social function 2025-05-30 00:00:00 2025-05-30 00:00:00 [facility] Sex assigned at 2000 00:00:00 2000 00:00:00 [facility] Smoking Status Start Date Stop Date Source Former Smoker 2023-03-26 00:00:00 2023-03-26 00:00:00 [facility] Never smoked tobacco [facility] Medications Ordered Medication Name Filled Medication Name Start Date Stop Date Current Medication? Ordering Clinician Indication Dosage Frequency Signature (SIG) Comments Components Source ibuprofen (IBU) tablet 600 mg 05-30 23:00: 00 05-30 23:31 :00 No 600mg 600 mg, Oral, ONCE, 1 dose, On Fri05/30/25 at 1800, BILLY [facility] Paliperidon e ER 6 MG Paliperidon e [...] Name Observation Time Observation Value Comments S amari Systolic blood pressure 2025-05-30 22:51:00 136 mm[Hg] [facility] Diastolic blood pressure 2025-05-30 22:51:00 74 mm[Hg] [facility] Heart rate 2025-05-30 22:51:00 114 /min [facility] Body temperature 2025-05-30 22:51:00 37.28 [facility] Respiratory rate 2025-05-30 22:51:00 20 /min [facility] Body height 2025-05-30 22:51:00 177.8 cm [facility] Body weight 2025-05-30 22:51:00 86.637 kg [facility] BMI 2025-05-30 22:51:00 27.41 kg/m2 [facility] Oxygen saturation in Arterial blood by Pulse oximetry 2025-05-30 22:51:00 100 /min [facility] height 2023-04-03 13:20:00 69 [in_i] Commo n [facility] weight 2023-04-03 13:20:00 250 [lb_av] Comm on [facility] bmi 2023-04-03 13:20:00 36.91 kg/m2 Comm on [facility] height 2023-02-18 09:00:00 69 [in_i] Commo n [facility] weight 2023-02-18 09:00:00 252 [lb_av] Comm on [facility] temperature 2023-02-18 09:00:00 98.7 [degF] Com mon [facility] bmi 2023-02-18 09:00:00 37.21 kg/m2 Comm on [facility] oximetry 2023-02-18 09:00:00 97 % Commo n [facility] respiratory rate 2023-02-18 09:00:00 17 /min [facility] blood pressure systolic 2023-02-18 09:00:00 132 mm[Hg] [facility] blood pressure diastolic 2023-02-18 09:00:00 76 mm[Hg] [facility] Procedures Procedure Date / Time Performed Performing Clinicia n Source XR HAND 3+ VW RIGHT 2025-05-30 23:12:03 Meenakshi Call ra [facility] Encounters Start Date/Time End Date/Time Encounter Type Admission Type Attending [facility] Care Facility Care Department Encounter ID Source 2023-04-03 12:09:02 Outpatient Shu An STLMLC STLC [id number] [facility] 2023-03-31 13:40:01 Outpatient Shu An STLMLC STLMLC [id number] [facility] 2023-02-18 08:40:04 Outpatient Shu An STLMLC STLMLC [id number] [facility] 2025-05-30 17:52:00 2025-05-30 19:08:00 Emergency X ALICIA CALL SANDRA [facility] ERT [id number] [facility] 2023-05-27 08:57:00 2023-05-27 08:57:00 [id number] 2023-04-08 00:00:00 2023-04-08 00:00:00 (TEL) STLMLC STLMLC [id number] [facility] 2023-04-03 00:00:00 2023-04-03 00:00:00 OFFICE VISIT ESTAB PT LEVEL 3 STLMLC STLMLC [id number] [facility] 2023-02-18 00:00:00 2023-02-18 00:00:00 OFFICE VISIT NEW PT LEVEL [address] [facility] [id number] [facility] Results Test Description Test Time Test Comments Results Resul t Comments Source XR Hand 3+ vw right 2025-05-30 23:46:45 EXAM: XR HAND 3+ VW RIGHT HISTORY: 24 years old Male with right hand COMPARISON: None FINDINGS: Imaging of the right hand demonstrates no acute fracture or dislocation.The joint spaces are maintained. The soft tissues are unremarkable. [facility] PROTHROMBIN [id number] 16:30:00* Test Item Value Reference Range Interpretation [...] Infarction (to prevent recurrent infarct). THROMBOPLASTIN TIME [id number] 16:30:00* Test Item Value Reference Range Interpretation Comme nts THROMBOPLASTIN TIME PARTIAL (test code = PTT) 35.1 SECONDS 26-35 H CBC W/AUTO [id number] 12:32:00* Test Item Value Reference Range Interpretation [...] = MDIFF) NO DIFF/SCN CRITERIA BASIC METABOLIC [id number] 12:08:00* Test Item Value Reference Range Interpretation [...] result as normal/abnormal. CALCIUM (test code = 00115-1) 9.4 mg/dL See_Comment N [Automated message] The system which generated this result transmitted reference range: 8.6-10.3 mg/dL. The reference range was not used to interpret this result as normal/abnormal. CARBON DIOXIDE (test code = 2027-9) 26 mmol/L See_Comment N [Automated message] The [...] result as normal/abnormal. GLOBULIN (test code = 70345-1) 3.0 g/dL (calc) See_Comment N [Automated message] [...] as normal/abnormal. Notes Date/Time Note Provider Source 2025-05-30 18:36:58 Summary: Discharge Pt given printed and verbal discharge instructions regarding wrist pain, encouraged hydration, Prescriptions provided none Discussed ibuprofen and to take with food to avoid GI distress. Pt verbalized understanding of instructions, pt awake alert oriented, resp reg unlabored, skin w/d, color appropriate for race, moves all ext well,pt encouraged to follow up with pcp Advised to seek medical attention for new/prolonged/worsening of symptoms, Symptoms No adverse reaction to meds given in ER noted upon discharge Awake, alert oriented, resp reg unlabored, skin w/d, pt leaving amb with steady gait, in no apparent distress, Rach Avendano RN [facility] 2025-05-30 18:35:44 Summary: wrist splint applied Wrist splint applied to the right wrist [facility] 2025-05-30 17:50:18 Patient brought in by [facility]. He punched a tree a few minutes [employer] because he was mad at friends and it triggered his PTSD. Pain in right wrist. Wants ibuprofen and splint. Mello Wing RN [facility] 2025-05-30 17:44:00 [facility] Emergency Department Note Patient Name: Anila Denney Date of : 2000 24 year old male Treatment Room: [facility] Primary Care Physician: Danny Mcclellan Patient Escorted by: Self [9] Mode of Arrival: Personal means [1] EMS Treatment Prior to ED Arrival: Travel and Exposure Screening: Symptoms Does patient have any of these symptoms?: (not recorded) Exposure Screening Has patient had contact with someone with a communicable disease in the last month?: (not recorded) Diseases exposed to:: (not recorded) Is Patient ?: (not recorded) Exposure Date: (not recorded) Chief Complaint: Chief Complaint Patient presents with Hand Pain History of Present Illness: History of Present Illness The patient presents from home for evaluation for right wrist/hand pain that started after he hit a tree instead of a person around 3:30 PM this afternoon. He is normally right-handed. No medication taken prior to arrival. He denies other complaints. Here for evaluation. Past Medical History/Immunizations: Past Medical History: Diagnosis Date Foot pain, right 01/24/2016 Allergies: No Known Allergies Past Social History: Tobacco Use Never Past Surgical History: Past Surgical History: Procedure Laterality Date OTHER broken nose Review of Systems: Review of Systems Constitutional: Negative for chills and fever. Respiratory: Negative for cough. Cardiovascular: Negative for chest pain. Gastrointestinal: Negative for abdominal pain. Musculoskeletal: Positive for arthralgias. Negative for neck pain and neck stiffness. Skin: Negative for wound. Neurological: Negative for dizziness. Psychiatric/Behavioral: Negative for agitation. Physical Exam: Physical Exam ED Triage Vitals [05/30/25 1751] Weight 86.6 kg (191 lb) Actual or estimated Height 1.778 m (5' 10") BP 136/74 Pulse 114 Resp 20 Temp 37.3 ?C (99.1 ?F) Temp source Oral SpO2 100 % Measured on Physical Exam Vitals and nursing note reviewed. Constitutional: Appearance: Normal appearance. HENT: Head: Normocephalic and atraumatic. Cardiovascular: Rate and Rhythm: Normal rate. Pulmonary: Effort: Pulmonary effort is normal. No respiratory distress. Abdominal: General: There is no distension. Musculoskeletal: General: Normal range of motion. Cervical back: Normal range of motion. Comments: Full range of motion his right wrist without difficulty. He has mild swelling as well as an abrasion to the ulnar aspect of his right hand. +2 radial pulse right side. Skin: General: Skin is warm and dry. Neurological: General: No focal deficit present. Mental Status: He is alert. Radiology: XR Hand 3+ vw right Preliminary Result EXAM: XR HAND 3+ VW RIGHT HISTORY: 24 years old Male with right hand COMPARISON: None FINDINGS: Imaging of the right hand demonstrates no acute fracture or dislocation. The joint spaces are maintained. The soft tissues are unremarkable. IMPRESSION No acute osseous abnormality. Preliminary Report Dictated by Resident: Mahi Rubin Lab Results: Lab Results - No data to display EKG: If EKG completed, see Procedure Note. Orders and Treatments: Orders Placed This Encounter Procedures XR Hand 3+ vw right Orders Placed This Encounter Medications ibuprofen (IBU) tablet 600 mg First Provider Eval: ED Events Date/Time Event User Comments 05/30/251746 Medical Screening Begins ALICIA CALL DO -- 05/30/251746 First Provider Evaluation ALICIA CALL DO -- ED COURSE Diagnosis/Impression as of 05/30/25 1828 Pain of right hand Results Procedures: Procedures MDM: Assessment & Plan Medical Decision Making The patient presents from home for evaluation for right wrist/hand pain that started after he hit a tree instead of a person around 3:30 PM this afternoon. He is normally right-handed. No medication taken prior to arrival. He denies other complaints. Vital signs are stable in the ER. +2 radial pulse right side. He has some mild swelling as well as an abrasion to the ulnar aspect of his right hand. No tenderness to the metacarpal phalangeal joints on his right hand. Full range of motion of the right wrist without difficulty. Will give the patient an ice pack as well as ibuprofen here in the ER. Will also obtain an x-ray. Anticipate discharge home later. 1826 -the patient is doing well here in the ER. The x-ray of his hand shows no acute osseous injuries. He remained stable here in the ER and is okay for discharge home with PCP follow-up in 1 week. Recommend RICE treatment. Problems Addressed: Pain of right hand: acute illness or injury Amount and/or Complexity of Data Reviewed Independent Historian: EMS Radiology: ordered and independent interpretation performed. Decision-making details documented in ED Course. Risk OTC drugs. Prescription drug management. Flowsheet Documentation: Scoring Tools: No data recorded Disposition/Condition: ED Disposition ED Disposition Discharge Condition Stable Comment -- Discharge Medications: Patient's Medications No medications on file Follow-up: Electronically signed by: Alicia Call DO 05/30/251827 T [facility] 2023-06-09 14:51:00 [id number] [place] [address] PATIENT NAME: ANILA DENNEY ADMIT DATE: 05/27/23 ACCOUNT NO: [id number] ROOM NO: AGE: 22 REPORT TYPE: OPERATIVE REPORT SEX: M ADMITTING PHYSICIAN: ATTENDING PHYSICIAN: Treva Craig MD OPERATION DATE: 05/27/2023 PREOPERATIVE DIAGNOSIS: Pilonidal cyst. POSTOPERATIVE DIAGNOSIS: Pilonidal cyst. PROCEDURE: Excision of pilonidal cyst. SURGEON: Treva Craig MD SOUND RANGING CREWMEMBER:Ivania Ortiz ANESTHESIA: GETA PROCEDURE IN DETAIL: The patient was taken back to the operating room and placed supine on the operating table and general anesthesia was established, the patient was positioned in prone position and the lower back and bilateral buttocks were prepped and draped in standard sterile fashion. An elliptical incision was made overlying the area of the cyst and extended through skin and subcutaneous tissue. Irrigation was performed. Hemostasis was achieved. The wound was then closed with interrupted nylon sutures. The patient tolerated the procedure well and was taken to recovery area in stable condition. ESTIMATED BLOOD LOSS: Less than 10 mL. COMPLICATIONS: None. Dictated By: Treva Craig MD Date Dictated: 06/09/2023 14:51:42 Date Transcribed: 06/09/2023 20:17:26 AG/ARM Receipt ID: [id number] Authenticated and Edited by Treva Craig MD On 06/23/23 7:19:31 AM at 0720 PATIENT NAME: ANILA DENNEY [facility]
[2025-06-02] MEDS ORDERED: TDAP (DIPHTH,PERTUSS(ACELL),TET VAC) 0.5 ML VIAL IMVAC ONE (05:41)
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
[2025-06-02 07:06] VITALS: BP 155/93; TEMP 97.4; O2SAT 99
== END 2025-06-02 07:02 | disposition home or self-care (01) ==
LOC: ER 05:17
DX: S01.83XA Puncture wound without foreign body of other part of head, initial encounter (principal); Z23 Encounter for immunization
CPT/HCPCS: 70450; 90715; 96372; 99284

== ENCOUNTER 2025-08-08 20:10 | Emergency (ER) | payer OTHER ==
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
--- NOTE | 2025-08-08 21:06 | EDPHYS ---
Physician Documentation [facility] Name: Tess Denney Age: 24 yrs Sex: Male : 2000 Arrival Date: 08/08/2025 Time: 20:10 Bed 17 Private MD: ED Physician Melvin Abreu HPI: 08/08 20:33 This 24 yrs old Male presents to ER via Unassigned with complaints of Mental sp4 eval. 08/09 05:16 Patient presents with primary complaint of insomnia and emotional upset. Patient states sp4 he was kicked out from his house by his mother. Patient states that sleep. Patient states he has been off his primary medication of Invega and Depakote for the past several months. He has lack of funding and lack of insurance. Additional previous medications include Abilify, lithium, Seroquel, hydroxyzine, Adderall, Ritalin. . Historical: - Allergies: 08/08 20:40 No Known Allergies; hb - PMHx: 20:40 Bipolar disorder; Anxiety; Depressive disorder; hb - PSHx: 20:40 pilondial cyst removal; [place] teeth extraction; hb - Immunization history:: Adult Immunizations unknown. - Infectious Disease History:: Denies. - Social history:: Smoking status: Reported history of juuling and/or vaping. - Family history:: not pertinent. ROS: 08/09 05:16 Constitutional: Negative for fever, chills, and weight loss, positive for acute sp4 insomnia, and acute emotional upset All other systems are negative, Exam: 05:16 Constitutional: This is a well developed, well nourished patient who is awake, alert, sp4 and in no acute distress. Head/Face: Normocephalic, atraumatic. Eyes: Pupils equal round and reactive to light, extra-ocular motions intact. Lids and lashes normal. Conjunctiva and sclera are not injected. Cornea within normal limits. Periorbital areas with no swelling, redness, or edema. ENT: Nares patent. No nasal discharge, no septal abnormalities noted. Tympanic membranes are normal and external auditory canals are clear. Oropharynx with no redness, swelling, or masses, exudates, or evidence of obstruction, uvula midline. Mucous membranes moist. Neck: Trachea midline, no thyromegaly or masses palpated, and no cervical lymphadenopathy. Supple, full range of motion without nuchal rigidity, or vertebral point tenderness. Chest/axilla: Normal chest wall appearance and motion. Nontender with no deformity. No lesions are appreciated. Cardiovascular: Regular rate and rhythm with a normal S1 and S2. No gallops, murmurs, or rubs. No pulse deficits. Respiratory: Lungs have equal breath sounds bilaterally, clear to auscultation and percussion. No rales, rhonchi or wheezes noted. No increased work of breathing, no retractions or nasal flaring. Abdomen/GI: Soft, with normal bowel sounds. No distension or tympany. No guarding or rebound. No evidence of tenderness throughout. Back: No spinal tenderness. No costovertebral tenderness. Skin: Warm, dry with normal turgor. Normal color with no rashes, no lesions, and no evidence of cellulitis. MS/ Extremity: Pulses equal, no cyanosis. Neurovascular intact. Full, normal range of motion. Neuro: Awake and alert, GCS 15, oriented to person, place, time, and situation. Cranial nerves II-XII grossly intact. Motor strength 5/5 in all extremities. Sensory grossly intact. Psych: Awake, alert, with orientation to person, place and time. Behavior, mood, and affect are within normal limits Vital Signs: 08/08 20:29 BP 126 / 75; Pulse 90; Resp 16; Temp 98.2; Pulse Ox 99% on R/A; Weight 68.04 kg; Pain hb 0/10; 20:29 Pain Scale: Adult hb [place] Coma Score: 08/09 05:16 Eye Response: spontaneous(4). Motor Response: obeys commands(6). Verbal Response: sp4 oriented(5). Total: 15. MDM: 08/08 20:18 Medical Screening Exam initiated kb 08/09 05:17 Differential diagnosis: drug withdrawal. acute psychotic break, depression, psychosis sp4 secondary to non-compliance, Acute primary insomnia. Data reviewed: vital signs, nurses notes, old medical records. ED course: Patient will be prescribed trazodone 100 mg p.o. every evening to assist with insomnia. Patient will be advised to seek nursing home at the local [facility]. Patient will be prescribed his regular medication Invega 6 mg every 12 hours and Depakote 500 mg twice a day. Otherwise there is no suicidal ideation or plan. No homicidal ideation or plan. Patient stable for discharge from the emergency department.. Administered Medications: No medications were administered Disposition Summary: 08/08/25 21:05 Discharge Ordered Problem: new sp4 Symptoms: have improved sp4 Condition: Stable sp4 Diagnosis - Insomnia, unspecified sp4 - Bipolar disorder, acute insomnia, sp4 - Other problems related to housing and economic circumstances sp4 Followup: sp4 - With: Jet Palomares MD - When: 7 - 10 days - Reason: Recheck today's complaints Discharge Instructions: - Discharge Summary Sheet sp4 - Insomnia sp4 Forms: - Patient Portal Instructions sp4 Prescriptions: - paliperidone 6 mg Oral Tablet, Extended Release 24 hr - take 1 tablet ORAL route every 12 hours for 30 days; 60 tablet; Refills: 0, sp4 Product Selection Permitted - trazodone 100 mg Oral tablet - take 1 tablet ORAL route every evening PRN insominia; 30 tablet; Refills: 0, sp4 Product Selection Permitted - Depakote 500 mg Oral Tablet - take 1 tablet ORAL route every 12 hours; 60 tablet; Refills: 0, Product sp4 Selection Permitted Signatures: Vivi Barillas FNP-C FNP-Ckb Baxter, Heather, RN RN Melvin Abreu MD MD sp4
--- NOTE | 2025-08-08 21:06 | ER ---
Nurse's Notes [facility] Name: Tess Denney Age: 24 yrs Sex: Male : 2000 Arrival Date: 08/08/2025 Time: 20:10 Bed 17 Private MD: Diagnosis: Insomnia, unspecified;Bipolar disorder, acute insomnia, ;Other problems related to housing and economic circumstances Presentation: 08/08 20:29 Chief complaint: Patient states: HE DOESN'T FEEL SAFE AT HOME. PT REPORTS HE FEELS hb UNSAFE SLEEPING AT HOME, FEELS HIS MOM IS GOING TO ALLOW PEOPLE IN HIS ROOM WHILE HE IS ASLEEP. PT REPORTS HE HAS FELT UNSAFE SINCE 2006 AND DOES NOT FEEL COMFORTABLE IF THE ROOM IS UNBALANCED IN NUMBER OF PEOPLE AND GENDERS. PT DENIES SI/HI. Coronavirus screen: At this time, the client does not indicate any symptoms associated with coronavirus-19. Ebola Screen: No symptoms or risks identified at this time. Initial Sepsis Screen: Does the patient meet any 2 criteria? No. Patient's initial sepsis screen is negative. Does the patient have a suspected source of infection? No. Patient's initial sepsis screen is negative. Risk Assessment: Do you want to hurt yourself or someone else? Patient reports no desire to harm self or others. Onset of symptoms is unknown. 20:29 Method Of Arrival: Ambulatory hb 20:29 Acuity: RUIZ 3 hb Triage Assessment: 20:40 General: Appears uncomfortable, well groomed, well nourished, Behavior is cooperative, hb appropriate for age, anxious. Pain: Denies pain. Historical: - Allergies: 20:40 No Known Allergies; hb - PMHx: 20:40 Bipolar disorder; Anxiety; Depressive disorder; hb - PSHx: 20:40 pilondial cyst removal; [place] teeth extraction; hb - Immunization history:: Adult Immunizations unknown. - Infectious Disease History:: Denies. - Social history:: Smoking status: Reported history of juuling and/or vaping. - Family history:: not pertinent. Screenin:12 [facility] ED Fall Risk Assessment (Adult) History of falling in the last 3 months, cp4 including since admission No falls in past 3 months (0 pts) Confusion or Disorientation No (0 pts) Intoxicated or Sedated No (0 pts) Impaired Gait No (0 pts) Mobility Assist Device Used No (0 pt) Altered Elimination No (0 pt) Score/Fall Risk Level 0 - 2 = Low Risk Oriented to surroundings, Maintained a safe environment, Assessed \T\ reinforced patient's understanding of fall precautions, Hourly rounding (assess needs \T\ fall precautionary measures) done. Abuse screen: Denies threats or abuse. Denies injuries from another. Nutritional screening: No deficits noted. Tuberculosis screening: No symptoms or risk factors identified. Never had TB. Assessment: 21:12 General: Appears in no apparent distress. comfortable, Behavior is calm, cooperative, cp4 appropriate for age. Pain: Denies pain. Neuro: Level of Consciousness is awake, alert, obeys commands, Oriented to person, place, time, situation. Cardiovascular: Patient's skin is warm and dry. Respiratory: Airway is patent Respiratory effort is even, unlabored. GI: No signs and/or symptoms were reported involving the gastrointestinal system. : No signs and/or symptoms were reported regarding the genitourinary system. EENT: No signs and/or symptoms were reported regarding the EENT system. Derm: No signs and/or symptoms reported regarding the dermatologic system. Musculoskeletal: No signs and/or symptoms reported regarding the musculoskeletal system. Vital Signs: 20:29 BP 126 / 75; Pulse 90; Resp 16; Temp 98.2; Pulse Ox 99% on R/A; Weight 68.04 kg; Pain hb 0/10; 20:29 Pain Scale: Adult hb [place] Coma Score: 08/09 05:16 Eye Response: spontaneous(4). Motor Response: obeys commands(6). Verbal Response: sp4 oriented(5). Total: 15. ED Course: 08/08 20:13 Patient arrived in ED. mr 20:18 Viv[facility] Barillas [facility]C [facility]. kb 20:18 Melvin Abreu MD is Attending Physician. kb 20:40 Triage completed. hb 20:40 Arm band placed on right wrist. hb 21:04 Jet Palomares MD is Referral Physician. sp4 21:12 Bed in low position. Call light in reach. Side rails up X2. cp4 21:12 No provider procedures requiring assistance completed. Patient did not have IV access cp4 during this emergency room visit. 21:17 Melissa Frankel is Primary Nurse. cp4 21:17 Provided Education on: bipolar disorder. cp4 Administered Medications: No medications were administered Medication: 21:12 VIS not applicable for this client. cp4 Outcome: 21:05 Discharge ordered by . sp4 21:17 Discharged to home ambulatory, cp4 21:17 Condition: stable 21:17 Discharge instructions given to patient, Instructed on discharge instructions, follow up and referral plans. medication usage, Demonstrated understanding of instructions, follow-up care, medications, Prescriptions given X 3, 21:18 Patient left the ED. cp4 Signatures: Vivi Barillas, REPORTS ANALYSIS MANAGER-C REPORTS ANALYSIS MANAGER-Ckb Monica Richards, Reg Reg mr Cristal Patel, RN RN Melvin Darden MD MD sp4 Potter, Christina cp4
[2025-08-08] MEDS ORDERED: WATER FOR INJ,STERILE 10 ML ONE (23:20)
[2025-08-08] MEDS ORDERED: ZIPRASIDONE MESYLA 20 MG/VIAL IM ONE (23:20)
[2025-08-08] MEDS ORDERED: LORazepam 2 MG/ML VIAL ONE (23:20)
[2025-08-09 04:33] VITALS: BP 126/75; TEMP 98.2; O2SAT 99
== END 2025-08-08 21:18 | disposition home or self-care (01) ==
LOC: ER 20:10
DX: G47.00 Insomnia, unspecified (principal); F31.9 Bipolar disorder, unspecified; Z59.89 Other problems related to housing and economic circumstances
CPT/HCPCS: 99283; J3486